=== PATIENT | female | born 1975 ===

== ENCOUNTER 2021-09-17 04:57 | Inpatient (IN) | payer MEDICAID, OTHER ==
[2021-09-17] MEDS ORDERED: BICITRA ORAL LIQD 30ML PO ONE (05:55)
[2021-09-17] MEDS ORDERED: METOCLOPRAMIDE 10 MG/2 ML INJ IV ONE (05:55)
[2021-09-17] MEDS ORDERED: FAMOTIDINE 20 MG/2 ML INJ IV ONE (05:55)
[2021-09-17] MEDS ORDERED: OXYTOCIN DRIP 30 UNITS/500 ML BAG IV SCH (06:00)
[2021-09-17 06:33] LABS: Basophils # (Auto) 0.1 K/mm3 (0.0-0.1); Basophils % (Auto) 1.7 % (0.0-1.8); Eosinophils # (Auto) 0.1 K/mm3 (0.0-0.4); Eosinophils % (Auto) 1.1 % (0.0-4.3); Hematocrit 34.3 % (30.3-42.9); Hemoglobin 12.2 gm/dl (10.1-14.3); Lymphocytes # (Auto) 1.7 K/mm3 (1.2-5.4); Mean Corpuscular HGB Conc 36 % (30-34); Mean Corpuscular Volume 100 fl (79-97); Monocytes # (Auto) 0.4 K/mm3 (0.0-0.8); Monocytes % (Auto) 6.3 % (0.0-7.3); Platelet Count 347 K/mm3 (140-440); Red Blood Count 3.42 M/mm3 (3.65-5.03); Red Cell Distribution Width 13.2 % (13.2-15.2)
[2021-09-17] MEDS ORDERED: ceFAZolin/Water 2 GM/20 ML 2 GM/20 ML SYRINGE IV ONE (07:05)
[2021-09-17] MEDS: LACTATED RINGERS 1,000 ML IV SCH ×2 (07:05→07:26)
--- NOTE | 2021-09-17 07:40 | History and Physical Report ---
History of Present Illness Date of examination: 09/17/21 Date of admission: 09/17/21 04:57 Chief complaint: ERCS History of present illness: IUP at 38.5 weeks Severe IUGR Previous c/section x1 PNC at [facility], records in chart. Past History Past Surgical History: section Social history: no significant social history - Obstetrical History Expected Date of Delivery: 09/26/21 Actual Gestation: 38 Week(s) 5 Day(s) : 5 Para: 1 Medications and Allergies Allergies Allergy/AdvReac Type Severity Reaction Status Date / Time No Known Allergies Allergy Verified 09/17/21 07:21 Home Medications Medication Instructions Recorded Confirmed Last Taken Type Vitamin 1 tab PO DAILY 09/17/21 09/17/21 09/16/21 09:00 History Active Meds: Active Medications Lactated Ringer's (Lactated Ringers) 1,000 mls @ 2,250 mls/hr IV PREOP RICH Stop: 09/18/21 06:27 Last Admin: 09/17/21 07:26 Dose: 2,250 mls/hr Documented by: Oxytocin/Sodium Chloride (Pitocin/Ns 30 Unit/500ml) 30 units in 500 mls @ 0 mls/hr IV TITR RICH; Protocol Review of Systems All systems: negative (No OB complaints) - Vital Signs Vital signs: Vital Signs Temp 98.4 F 09/17/21 06:01 Temp Pulse Resp BP Pulse Ox 98.4 F 73 92/56 99 09/17/21 06:01 09/17/21 07:33 09/17/21 07:20 09/17/21 07:33 - Physical Exam Breasts: Positive: deferred Cardiovascular: Regular rate Abdomen: Positive: normal appearance, normal bowel sounds Genitourinary (Female): Positive: normal external genitalia, normal perenium Vagina: Positive: normal moisture Uterus: Positive: enlarged Anus/Rectum: Positive: normal perianal skin Extremities: Positive: normal Deep Tendon Reflex Grade: Normal +2 - Obstetrical FHR: category 1 Results Result Diagrams: 09/17/21 05:43 Abnormal lab results 09/17/21 Range/Units 05:43 RBC 3.42 L (3.65-5.03) M/mm3 MCV 100 H (79-97) fl MCH 36 H (28-32) pg MCHC 36 H (30-34) % All other labs normal. Assessment and Plan Severe IUGR ERCS NPO, public relations consultant to OR for procedure Informed consent obtained Rodrigue Roper MD
[2021-09-17] MEDS ORDERED: TERBUTALINE 1 MG/1 ML INJ SUB-Q PRN (07:44)
--- NOTE | 2021-09-17 07:54 | Anesthesia Day of Surgery ---
Anesthesia Day of Surgery - Day of Surgery Patient Examined: Yes Patient H&P Reviewed: Yes Patient is NPO: Yes
--- NOTE | 2021-09-17 07:54 | Anesthesia Consultation ---
Anesthesia Consult and Med Hx Date of service: 09/17/21 - Airway Anesthetic Teeth Evaluation: Good ROM Head & Neck: Adequate Mental/Hyoid Distance: Adequate Mallampati Class: Class II Intubation Access Assessment: Probably Good - Pulmonary Exam CTA: Yes - Cardiac Exam Cardiac Exam: RRR - Pre-Operative Health Status ASA Pre-Surgery Classification: ASA3 Proposed Anesthetic Plan: Spinal - Pulmonary Hx Smoking: No Hx Asthma: No COPD: No Hx Pneumonia: No - Cardiovascular System Hx Hypertension: No Hx Coronary Artery Disease: No Hx Heart Attack/AMI: No Hx Angina: No - Central Nervous System Hx Seizures: No CVA: No Hx Psychiatric Problems: No - Endocrine Hx Renal Disease: No Hx End Stage Renal Disease: No Hx Liver Disease: No Hx Non-Insulin Dependent Diabetes: Yes (GDM 52gm/dL, asymptomatic) Hx Hypothyroidism: No Hx Hyperthyroidism: No - Hematic Hx Anemia: No Hx Sickle Cell Disease: No - Other Systems Hx Alcohol Use: No
[2021-09-17] MEDS ORDERED: dexAMETHasone 20 MG/5 ML VIAL ONE (08:25)
[2021-09-17] MEDS ORDERED: BUPIVACAINE/PF (0.5%) 5 MG/1 ML 30 ML VIAL INFILTRATI ONE (08:25)
[2021-09-17] MEDS ORDERED: ePHEDrine SULFATE 50 MG/1 ML INJ ONE (08:25)
[2021-09-17] MEDS ORDERED: ONDANSETRON 4 MG/2 ML INJ ONE (08:25)
[2021-09-17] MEDS ORDERED: KETOROLAC 30 MG/1 ML INJ ONE (08:25)
[2021-09-17] MEDS ORDERED: LACTATED RINGERS 1,000 ML ONE ×2 (08:25→08:33)
[2021-09-17] MEDS ORDERED: fentaNYL 100 MCG/2 ML INJ IV PRN (08:30)
[2021-09-17] MEDS ORDERED: ACETAMINOPHEN 325 MG TAB PO PRN (08:30)
[2021-09-17] MEDS ORDERED: BUTORPHANOL 2 MG/1 ML INJ IV PRN ×2 (08:30)
[2021-09-17] MEDS ORDERED: LIDOCAINE (2%) 20 MG/1 ML VIAL 20 ML MDV INFILTRATI NR (09:00)
[2021-09-17] MEDS ORDERED: NALOXONE 0.4 MG/1 ML INJ IV PRN (10:09)
--- NOTE | 2021-09-17 10:15 | Procedure Note ---
OB Delivery Note - Delivery Date of Delivery: 09/17/21 Surgeon: ESTEFANIA ZUNIGA - Section Postop diagnosis: same section procedure: repeat low transverse Disposition: PACU Complications: none Narrative: Preop diagnosis: IUP at 38.5 weeks, previous section x1, severe IUGR Postop diagnosis: Same Procedure: Repeat low transverse section via Pfannenstiel incision Anesthesia spinal Complications none EBL around 400 ml (QBL 342) IV fluids 1000 mL Urine output 200 mL, clear Drains Szymanski to gravity Findings: Viable male with weight 2490gms and 9/9, normal uterus tubes and ovaries bilaterally Procedure: Patient was consented in OB triage, taken to the operating room where she received excellent spinal anesthesia. She was then placed in the dorsal supine position with a leftward tilt. The abdomen was prepped and draped in a sterile fashion, and a timeout was verified. Adequate anesthesia was co nfirmed prior to the skin incision. A Pfannenstiel skin incision was made with a scalpel taken down to the underlying structures and the fascia was incised in the midline. The incision was extended laterally with curved Molina scissors, the superior and inferior aspects of the fascial incisions were grasped with Maria Dolores clamps and the rectus muscles dissected sharply. The abdomen was entered blunt ly in the midline carried down inferiorly with good visualization of the bladder. The vesicouterine peritoneum was tented with English forceps and incised in the midline with Metzenbaum scissors and the vesicouterine peritoneum taken down sharply. The uterine incision was then made sharply with a scalpel. The inferior and superior aspect of the uterine incisions were extended bluntly, the baby's head was delivered atraumatically. The remainder of the delivery was uncomplicated, no nuchal cord. The cord was clamped and cut and baby handed to waiting NICU team. An intact placenta with three-vessel cord delivered manually. The uterus was then cleared of all clots and debris and the uterus exteriorized. The uterine incision was closed in 2 layers of 0 vicryl with excellent hemostasis. The abdomen was then irrigated with warm normal saline and the uterus placed back into the abdomen atraumatically. A second look at the uterine incision assured hemostasis. The peritoneum was closed with 3-0 Vicryl, the rectus muscles approximated with 3-0 Vicryl, and the fascia closed with 0 Vicryl in the usual fashion. The subcuticular structures were closed with interrupted sutures of 0 Vicryl and the skin closed with 4-0 Monocryl. A pressure dressing was applied. All sponge needle and instrument counts were correct x2. There were no complications. Mom and baby stable to PACU. EBL~ 4 00 mL Rodrigue Zuniga MD
[2021-09-17] MEDS ORDERED: WITCH HAZEL/ GLYCERIN PAD TP PRN (10:30)
[2021-09-17] MEDS ORDERED: MORPHINE 4 MG/1 ML INJ IV PRN (11:00)
[2021-09-17] MEDS ORDERED: KETOROLAC 30 MG/1 ML INJ IV PRN (11:00)
[2021-09-17] MEDS ORDERED: LANOLIN/ZINC/DIMETHICONE (LANSINOH) 7 GM TP PRN (11:00)
[2021-09-17] MEDS ORDERED: IBUPROFEN 800 MG TAB PO PRN (11:00)
[2021-09-17] MEDS ORDERED: D5W/LACTATED RINGERS 1,000 ML IV SCH (20:00)
[2021-09-17] MEDS ORDERED: MAGNESIUM HYDROXIDE (MOM) ORAL LIQD UDC PO PRN (22:00)
[2021-09-18 00:23] LABS: Hematocrit 28.6 % (30.3-42.9); Hemoglobin 10.2 gm/dl (10.1-14.3)
[2021-09-18] MEDS: HYDROcodone/ACETAMINOPHEN 5-325 MG TAB PO PRN ×4 (01:20→21:57)
[2021-09-18] MEDS: IBUPROFEN 600 MG TAB PO PRN (05:05)
--- NOTE | 2021-09-18 10:50 | Progress Note ---
Assessment and Plan POD #1 A: S/P Repeat LTCS Hypotensive B/ps (normal for pt) P: Continue routine pp orders Encourage ambulation D/C home within 24-48 hrs if stable Subjective - Subjective Date of service: 09/18/21 Principal diagnosis: s/p repeat LTCS Patient reports: appetite normal, voiding normally, pain well controlled, flatus, ambulating normally [place]: doing well, bottle feeding Objective - Vital Signs Latest vital signs: Vital Signs Temp Pulse Resp BP BP Pulse Ox Pulse Ox 09/18/21 08:17 98.0 F 19 88/53 09/18/21 06:10 98.0 F 74 16 81/46 98 09/18/21 05:05 20 09/18/21 05:00 98/50 09/18/21 01:20 20 09/18/21 00:11 98.5 F 82 18 88/49 95 09/17/21 21:09 98.1 F 88 18 90/49 97 09/17/21 19:53 20 99 09/17/21 17:06 97.9 F 18 88/49 Intake and Output 09/17/21 09/18/21 09/18/21 22:59 06:59 14:59 Intake Total 240 240 120 Output Total 1900 Balance -1660 240 120 Intake: Oral 240 240 120 Output: Urine 1900 Indwelling Catheter 1900 Other: Total, Intake Amount 240 240 120 Total, Output Amount 700 # Voids Indwelling Catheter 300 Void 1 - Exam Breasts: Present: normal Abdomen: Present: normal appearance, soft, normal bowel sounds Vulva: both: normal Uterus: Present: normal, firm, fundal height below umbilicus Extremities: Present: normal Incision: Present: normal, dry, intact - Labs Labs: Abnormal lab results 09/17/21 Range/Units 22:57 Hct 28.6 L (30.3-42.9) %
[2021-09-18] MEDS: SIMETHICONE 80 MG CHEW TAB PO PRN ×2 (13:41→22:01)
--- NOTE | 2021-09-18 17:34 | Post Anesthesia Evaluation ---
- Post Anesthesia Evaluation Patient Participated: Yes Airway Patent: Yes Stable Respiratory Function: Yes Nausea/Vomiting: No Temp > 96.8F: Yes Pain Manageable: Yes Adequeate Hydration: Yes Anesthesia Complications: No Block Receding Appropriately: Yes
[2021-09-19] MEDS: IBUPROFEN 600 MG TAB PO PRN ×2 (01:18→09:54)
--- NOTE | 2021-09-19 11:41 | Progress Note ---
Assessment and Plan A: POD #2 Mild Asymptomatic Anemia P: Follow Routine PostOp Orders D/C Home today per patient request RTO in One Week Subjective - Subjective Date of service: 09/19/21 Principal diagnosis: s/p repeat LTCS Patient reports: appetite normal, voiding normally, pain well controlled, flatus, ambulating normally : doing well, bottle feeding Objective - Vital Signs Latest vital signs: Vital Signs Temp Pulse Resp BP BP Pulse Ox Pulse Ox 09/19/21 08:30 99 09/19/21 08:20 98.2 F 75 18 85/49 09/19/21 02:18 18 09/19/21 01:36 98.3 F 74 16 83/48 96 09/18/21 22:57 18 09/18/21 21:57 18 09/18/21 21:30 100 09/18/21 18:20 95 09/18/21 16:07 95 09/18/21 15:57 97.9 F 84 18 91/53 95 09/18/21 15:56 89 79/47 95 09/18/21 14:06 95 09/18/21 12:20 95 09/18/21 11:59 97.9 F 75 18 91/55 98 Intake and Output 09/18/21 09/19/21 09/19/21 22:59 06:59 14:59 Intake Total 90 240 Balance 90 240 Intake: Oral 90 240 Other: Total, Intake Amount 90 240 # Voids Void 1 - Exam Breasts: Present: normal Cardiovascular: Present: Regular rate Lungs: Present: Clear to auscultation, Normal air movement Abdomen: Present: normal appearance, soft, normal bowel sounds Uterus: Present: normal, firm, fundal height above umbilicus Extremities: Present: normal Incision: Present: normal, dry, intact
--- NOTE | 2021-09-19 11:42 | Discharge Summary ---
Providers - Providers Date of Admission: 09/17/21 04:57 Date of discharge: 09/19/21 Attending physician: COLIN CROCKER JR, MD Primary care physician: COLIN CROCKER JR, MD Hospitalization Reason for admission: section Delivery: Procedure: repeat low transverse Episiotomy: none Laceration: none Incision: normal, dry, intact Other procedures: none complications: none Discharge diagnosis: IUP at term delivered [place] baby: male Condition at discharge: Good Disposition: 01 HOME / SELF CARE / HOMELESS Plan - Discharge Medications Prescriptions: Ibuprofen [Motrin] 600 mg PO Q8H PRN #60 tablet PRN Reason: Pain oxyCODONE /ACETAMINOPHEN [Percocet 5/325] 1 tab PO Q6HR PRN #20 tablet PRN Reason: Pain - Provider Discharge Summary Activity: routine, no sex for 6 weeks, no heavy lifting 4 weeks, no strenuous exercise Diet: routine Instructions: routine Additional instructions: [] Smoking cessation referral if applicable(refer to patient education folder for contact #) [] Refer to [facility] Booklet Call your doctor immediately for: * Fever > 100.5 * Heavy vaginal bleeding ( >1 pad per hour) * Severe persistent headache * Shortness of breath * Reddened, hot, painful area to leg or breast * Drainage or odor from incision. * Keep incision clean and dry at all times and follow doctor's instructions regarding bathing/showering - Follow up plan Follow up: COLIN CROCKER JR, MD [Primary Care Provider] - 7 Days
[2021-09-19 13:23] VITALS: BP 92/52
== END 2021-09-19 13:10 | disposition home or self-care (01) | DRG 788 ==
LOC: APU 04:57 → OB 10:42
PROVIDERS: ADMIT Obstetrics & Gynecology; ATTEND Obstetrics & Gynecology
PROC: 10D00Z1 Extraction of Products of Conception, Low, Open Approach (ICD-10-PCS; principal; 2021-09-17)
DX: O34.211 Maternal care for low transverse scar from previous cesarean delivery (principal); Z37.0 Single live birth; Z3A.38 38 weeks gestation of pregnancy; Z86.32 Personal history of gestational diabetes; O90.81 Anemia of the puerperium; Z20.822 Contact with and (suspected) exposure to COVID-19
CPT/HCPCS: 36415; 59025; 85014; 85018; 85025; 86592; 86850; 86900; 86901; G0378; J1100; J1885; J2270; J2405; J2765; J3490; J7120; J7121; U0003